=== PATIENT | female | born 1980 | race Caucasian/White ===

== ENCOUNTER → 2016-12-08 | Outpatient (CLI) | payer OTHER ==
[2016-12-08 12:07] LABS: CH 32.9; CHCM 33.5; HCT 37.6 % (34.0-46.0); HDW 2.27; HGB 12.5 gm/dL (11.4-16.0); MCH 32.7 pg (25.0-35.0); MCHC 33.1 g/dL (31.0-37.0); MCV 98.7 fL (80.0-100.0); Mean Platelet Volume 7.3; RBC 3.81 m/uL (3.80-5.40); RDW 12.5 % (11.5-15.5); WBC 8.5 k/uL (3.8-10.6)
--- NOTE | 2016-12-08 12:25 | WWHP ---
DATE OF SERVICE: 12/08/2016 CHIEF COMPLAINT: The patient is here for her routine gynecologic exam. HPI: This is a 36-year-old, G8, P7-0-1-7. Her LMP was in 2009 and this was just prior to her endometrial ablation. She has been amenorrheic since then. She states her last pelvic exam was about 5 years ago. She is without gynecologic complaints. She states she has been receiving medroxyprogesterone acetate injections every 3 months because of her history of ovarian cysts. She says she has been on this since before her endometrial ablation. She says she does this through Eliel Cassidy who was with Dr. Nash in [place]. PAST MEDICAL HISTORY: Chronic back pain, asthma as a child, history of depression. MEDICATIONS: 1. Ventolin inhaler p.r.n. 2. Gabapentin 300 mg daily. 3. Potassium 10 mEq daily. 4. Ibuprofen 600 mg p.r.n. 5. Medroxyprogesterone injections 150 mg every 3 months. 6. Tramadol 50 mg daily. 7. Ciprofloxacin 500 mg as directed. 8. Baclofen 10 mg as directed. ALLERGIES: No known drug allergies. PAST SURGICAL HISTORY: LEEP procedure of the cervix in approximately 2003, D&C for spontaneous in 1997, tubal ligation in 2003, endometrial ablation in 2009. PAST OB HISTORY: Seven vaginal deliveries and one spontaneous . 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 She states she had a LEEP procedure of her cervix in 2003 for cervical dysplasia and Pap smears have been normal since then. SOCIAL HISTORY: She admits to smoking 1-1/2 packs of cigarettes per day and has about 4 alcoholic drinks per year. She does admit to smoking marijuana, but denies any other drug use. She is but has been for many years and lives with her present boyfriend who she has been with since approximately 2000. 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 FAMILY HISTORY: Father had throat cancer. Paternal aunt had breast cancer. Grandmother had some type of female cancer but she is uncertain of the type. Grandfather had hypertension. REVIEW OF SYSTEMS: She believes she has gained about 20 pounds over the last year or so. She denies respiratory, cardiac, or GI problems. PHYSICAL EXAM: Blood pressure 106/70. Height 5 feet 4 inches. Weight 153 pounds. Temperature 97.7, pulse 80. This a well-developed, well-nourished white female who is alert and oriented x3 in no acute distress. HEENT is within normal limits. NECK: Supple without mass or thyromegaly. CHEST AND LUNGS: Clear to auscultation. HEART: Regular rate and rhythm. Breasts are without mass or discharge. Axillary exam is negative for adenopathy. BACK: Negative for CVA tenderness. ABDOMEN: Soft, nontender, without palpable masses. PELVIC EXAM: Normal external genitalia. Cervix and vagina appear normal. Cervix has an appearance that she has had a previous LEEP procedure in the past. There are no lesions. There is no unusual discharge. No evidence of prolapse. The uterus is midposition, nongravid size and nontender. There are no palpable adnexal masses or tenderness. Rectal exam is negative tenderness. EXTREMITIES: Nontender. IMPRESSION: A 36-year-old female with normal gynecologic exam who is status post tubal ligation. PLAN: 1. Pap smear was performed. 2. Self breast examination was discussed. 3. She had a mammogram in 04/2016 and was benign. I recommended that she have her next one at age 38. 4. She will return in one year.
[2016-12-08 12:38] LABS: ALT 24 U/L (9-52); AST 19 U/L (14-36); Alkaline Phosphatase 63 U/L (38-126); Anion Gap 9 mmol/L; Blood Urea Nitrogen 6 mg/dL (7-17); Calcium 9.1 mg/dL (8.4-10.2); Carbon Dioxide 24 mmol/L (22-30); Chloride 107 mmol/L (98-107); Cholesterol 214 mg/dL (<200); Glucose 87 mg/dL (74-99); HDL Cholesterol 52 mg/dL (40-60); Non-African American GFR(MDRD) >60 (>60 ml/min/1.73 sqM); Potassium 4.2 mmol/L (3.5-5.1); Sodium 140 mmol/L (137-145); Total Bilirubin 0.5 mg/dL (0.2-1.3); Total Protein 7.2 g/dL (6.3-8.2); Triglycerides 52 mg/dL (<150)
--- NOTE | 2016-12-22 05:50 | WWPLE ---
December 21, 2016 DOMINIC HORTON MD RE: Micaela Ashraf Dear Dr. Horton: I had the pleasure of seeing your patient Micaela Ashraf in the office on 12/08/16. As you know she is a 36-year-old female who presented for her routine gynecologic exam. Her gynecologic exam was unremarkable. Her Pap smear showed ASCUS. Reflex high risk HPV testing was performed and this was negative. Nothing further is needed at this time, however, I have recommended that we repeat the Pap smear in one year. Her mammogram will be due at age 38. Thank you for allowing me to participate in the care of your patient. Please do not hesitate to call if you have any questions. Sincerely, CARMEN CANDELARIA MD [facility]
== END | disposition home or self-care (01) ==
LOC: WWCWWP 09:58
PROVIDERS: ATTEND Obstetrics & Gynecology
DX: Z00.00 Encounter for general adult medical examination without abnormal findings (principal); E78.2 Mixed hyperlipidemia; M19.90 Unspecified osteoarthritis, unspecified site; J44.9 Chronic obstructive pulmonary disease, unspecified
CPT/HCPCS: 36415; 80053; 80061; 85027

== ENCOUNTER 2017-02-14 09:57 | Emergency (ER) | payer OTHER ==
[2017-02-14] MEDS ORDERED: ONDANSETRON 4 MG/2 ML VIAL IVP STA (10:44)
[2017-02-14] MEDS ORDERED: SODIUM CHLORIDE 0.9% 1,000 ML IV STA (10:44)
[2017-02-14] MEDS ORDERED: HYDROmorphone 1 MG/ML 1 ML SYRINGE IVP STA (10:44)
--- NOTE | 2017-02-14 10:47 | ED ---
General Adult HPI - General Chief complaint: Abdominal Pain Stated complaint: Rt side pain Time Seen by Provider: 02/14/17 10:40 Source: patient, RN notes reviewed Mode of arrival: ambulatory Limitations: no limitations - History of Present Illness Initial comments: Patient 37-year-old female who presents emergency room today with a chief complaint of right-sided abdominal pain that started last night. She describes it as pressure and sharp at times. She states she seems to be worse with movements. She states not noticed any association with food as it just started last night. Patient currently rates it a 6/10 on located on the right upper quadrant. Does admit some pain radiating around to the right side of her back. She admits that these symptoms are somewhat similar to ovarian cyst that she' s had in the past but also admits that it does feel different to her. Patient denies any other complaints or symptoms. Patient denies any recent fever, chills , shortness of breath, chest pain numbness or tingling, dysuria or hematuria, constipation or diarrhea, headaches or visual changes, or any other complaints. - Related Data Home Medications Medication Instructions Recorded Confirmed Albuterol Inhaler [Ventolin Hfa 2 puff INHALATION RT-Q4H PRN 02/14/17 02/14/17 Inhaler] Atorvastatin [Lipitor] 20 mg PO HS 02/14/17 02/14/17 Baclofen 10 mg PO BID PRN 02/14/17 02/14/17 Gabapentin [Neurontin] 300 mg PO BID 02/14/17 02/14/17 Ibuprofen [Motrin] 600 mg PO BID 02/14/17 02/14/17 Medroxyprogesterone Acetate 150 mg PO Q90D 02/14/17 02/14/17 [Medroxyprogesterone Acetate] Potassium Chloride [Klor-Con 10] 10 meq PO DAILY 02/14/17 02/14/17 traMADol HCl [Ultram] 50 mg PO BID PRN 02/14/17 02/14/17 Previous Rx's Medication Instructions Recorded Omeprazole 20 mg PO DAILY 10 Days 02/14/17 Ondansetron Odt [Zofran ODT] 4 mg PO Q8HR PRN #20 tab 02/14/17 Allergies Allergy/AdvReac Type Severity Reaction Status Date / Time No Known Allergies Allergy Verified 02/14/17 12:40 Review of Systems ROS Statement: Those systems with pertinent positive or pertinent negative responses have been documented in the HPI. ROS Other: All systems not noted in ROS Statement are negative. Past Medical History Past Medical History: No Reported History History of Any Multi-Drug Resistant Organisms: None Reported Past Surgical History: Tubal Ligation Additional Past Surgical History / Comment(s): uterine ablation d and c Past Psychological History: No Psychological Hx Reported Smoking Status: Current every day smoker Past Alcohol Use History: Rare Past Drug Use History: Marijuana General Exam - General Exam Comments Initial Comments: General: The patient is awake and alert, in no distress, and does not appear acutely ill. Eye: Pupils are equal, round and reactive to light, extra-ocular movements are intact. No nystagmus. There is normal conjunctiva bilaterally. No signs of icterus. Ears, nose, mouth and throat: There are moist mucous membranes and no oral lesions. Neck: The neck is supple, there is no tenderness or JVD. Cardiovascular: There is a regular rate and rhythm. No murmur, rub or gallop is appreciated. Respiratory: Lungs are clear to auscultation, respirations are non-labored, breath sounds are equal. No wheezes, stridor, rales, or rhonchi. Gastrointestinal: Normal. CMP. Normal bowel sounds. Abdomen soft on palpation. Patient does have tenderness in the right upper quadrant. No rebound tenderness. No guarding. No CVA tenderness. Musculoskeletal: Normal ROM, no tenderness. Strength 5/5. Sensation intact. Pulses equal bilaterally 2+. Neurological: A&O x 3. CN II-XII intact, There are no obvious motor or sensory deficits. Coordination appears grossly intact. Speech is normal. Skin: Skin is warm and dry and no rashes or lesions are noted. Psychiatric: Cooperative, appropriate mood & affect, normal judgment. Limitations: no limitations Course Vital Signs 02/14/17 02/14/17 10:27 12:18 Temperature 98.2 F Pulse Rate 80 59 L Respiratory 16 18 Rate Blood Pressure 135/89 120/58 O2 Sat by Pulse 97 907 H Oximetry Medical Decision Making - Medical Decision Making Patient reexamined at this time shows no signs of distress. Resting comfortably in the stretcher. Her abdomen soft nontender. Patient's labs been reviewed and are unremarkable. Ultrasound reviewed no evidence for acute cholecystitis. Was discussed with patient the results. Patient will be discharged home on omeprazole for her symptoms advised follow-up family doctor she has an appointment in 2 days. Advised to discuss options of further evaluation and possible HIDA scan. Advised return if symptoms increase worsen or for any other concerns. - Lab Data Result diagrams: 02/14/17 10:56 02/14/17 10:56 Lab Results 02/14/17 02/14/17 02/14/17 Range/Units 10:56 10:56 10:56 WBC 7.7 (3.8-10.6) k/uL RBC 3.90 (3.80-5.40) m/uL Hgb 12.6 (11.4-16.0) gm/dL Hct 38.1 (34.0-46.0) % MCV 97.5 (80.0-100.0) fL MCH 32.4 (25.0-35.0) pg MCHC 33.2 (31.0-37.0) g/dL RDW 12.3 (11.5-15.5) % Plt Count 341 (150-450) k/uL Neutrophils % 58 % Lymphocytes % 31 % Monocytes % 5 % Eosinophils % 2 % Basophils % 1 % Neutrophils # 4.4 (1.3-7.7) k/uL Lymphocytes # 2.3 (1.0-4.8) k/uL Monocytes # 0.4 (0-1.0) k/uL Eosinophils # 0.1 (0-0.7) k/uL Basophils # 0.1 (0-0.2) k/uL Sodium 140 (137-145) mmol/L Potassium 4.8 (3.5-5.1) mmol/L Chloride 107 (98-107) mmol/L Carbon Dioxide 20 L (22-30) mmol/L Anion Gap 13 mmol/L BUN 5 L (7-17) mg/dL Creatinine 0.72 (0.52-1.04) mg/dL Est GFR (MDRD) Af Amer >60 (>60 ml/min/1.73 sqM) Est GFR (MDRD) Non-Af >60 (>60 ml/min/1.73 sqM) Glucose 88 (74-99) mg/dL Calcium 9.5 (8.4-10.2) mg/dL Total Bilirubin 0.6 (0.2-1.3) mg/dL AST 32 (14-36) U/L ALT 33 (9-52) U/L Alkaline Phosphatase 73 (38-126) U/L Total Protein 8.1 (6.3-8.2) g/dL Albumin 4.3 (3.5-5.0) g/dL Amylase 51 (30-110) U/L Lipase 84 (23-300) U/L Urine Color Light Yellow Urine Appearance Clear (Clear) Urine pH 5.0 (5.0-8.0) Ur Specific Roberta 1.002 (1.001-1.035) Urine Protein Negative (Negative) Urine Glucose (UA) Negative (Negative) Urine Ketones Negative (Negative) Urine Blood Negative (Negative) Urine Nitrite Negative (Negative) Urine Bilirubin Negative (Negative) Urine Urobilinogen <2.0 (<2.0) mg/dL Ur Leukocyte Esterase Negative (Negative) Disposition Clinical Impression: Abdominal pain Disposition: HOME SELF-CARE Condition: Good Instructions: Abdominal Pain (ED) Additional Instructions: Please use medication as discussed. Please follow-up with family doctor in the next 2 days with scheduled appointment. Please discuss options of possible HIDA scan. Please return to emergency room if any symptoms increase or worsen or for any other concerns as discussed. Prescriptions: Omeprazole 20 mg PO DAILY 10 Days Ondansetron Odt [Zofran ODT] 4 mg PO Q8HR PRN #20 tab PRN Reason: Nausea Time of Disposition: 13:14
--- NOTE | 2017-02-14 11:37 | XR ---
EXAMINATION TYPE: XR KUB DATE OF EXAM: 02/14/2017 11:16 AM CLINICAL HISTORY: History of kidney stones with sharp right-sided pain and nausea. TECHNIQUE: 2 upright KUB images of the abdomen are obtained COMPARISON: CT abdomen and pelvis May 14, 2015 FINDINGS: Scattered gas is seen in non-distended small bowel loops. Gas and fecal material is seen in non-distended colon. Rounded densities in left pelvis favor phleboliths. There is 10 mm oval densi ty in the right pelvis suspicious for distal ureter calculus as is not clearly seen on prior CT. No p neumoperitoneum is present. Lung bases are clear. Osseous structures are intact. IMPRESSION: Possible 10 mm distal right ureter calculus versus new prominent phlebolith.
[2017-02-14 11:45] LABS: Appearance,Urine Clear (Clear); Bilirubin,Urine Negative (Negative); Glucose,Urine (UA) Negative (Negative); Ketones,Urine Negative (Negative); Leukocyte Esterase,Urine Negative (Negative); Nitrite,Urine Negative (Negative); Protein,Urine Negative (Negative); Specific Gravity,Urine 1.002 (1.001-1.035); UA Billing (MACRO vs. MICRO) CHEM; Urobilinogen,Urine <2.0 mg/dL (<2.0)
[2017-02-14 11:46] LABS: Basophils # (A) 0.1 k/uL (0-0.2); Basophils % (A) 1 %; CH 33.1; CHCM 34.1; Eosinophils # (A) 0.1 k/uL (0-0.7); Eosinophils % (A) 2 %; HCT 38.1 % (34.0-46.0); HDW 2.22; HGB 12.6 gm/dL (11.4-16.0); Luc # (Auto) 0.24; Luc % (Auto) 3; Lymphocytes # (A) 2.3 k/uL (1.0-4.8); Lymphocytes % (A) 31 %; MCH 32.4 pg (25.0-35.0); MCHC 33.2 g/dL (31.0-37.0); MCV 97.5 fL (80.0-100.0); Mean Platelet Volume 7.6; Monocytes # (A) 0.4 k/uL (0-1.0); Monocytes % (A) 5 %; Neutrophils # (A) 4.4 k/uL (1.3-7.7); Neutrophils % (A) 58 %; RDW 12.3 % (11.5-15.5); WBC 7.7 k/uL (3.8-10.6); WBC (Perox) 7.78
[2017-02-14 11:59] LABS: ALT 33 U/L (9-52); AST 32 U/L (14-36); Alkaline Phosphatase 73 U/L (38-126); Amylase 51 U/L (30-110); Anion Gap 13 mmol/L; Blood Urea Nitrogen 5 mg/dL (7-17); Calcium 9.5 mg/dL (8.4-10.2); Carbon Dioxide 20 mmol/L (22-30); Chloride 107 mmol/L (98-107); Glucose 88 mg/dL (74-99); Non-African American GFR(MDRD) >60 (>60 ml/min/1.73 sqM); Sodium 140 mmol/L (137-145); Total Bilirubin 0.6 mg/dL (0.2-1.3); Total Protein 8.1 g/dL (6.3-8.2)
[2017-02-14 12:00] LABS: Potassium 4.8 mmol/L (3.5-5.1)
[2017-02-14 12:19] VITALS: RESP 18
--- NOTE | 2017-02-14 12:26 | US ---
EXAMINATION TYPE: US abdomen limited DATE OF EXAM: 02/14/2017 12:07 PM COMPARISON: CT abdomen and pelvis May 14, 2015 CLINICAL HISTORY: Pain. Right upper quadrant pain per patient. 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 There is suboptimal vi sualization of entire pancreas and liver. IMPRESSION: No shadowing mobile gallstones or ultrasound evidence for acute cholecystitis.
[2017-02-14 13:35] VITALS: BP 130/69; PULSE 58; TEMP 98.1
== END 2017-02-14 13:33 | disposition home or self-care (01) ==
LOC: EC 09:57
DX: R10.11 Right upper quadrant pain (principal); F17.200 Nicotine dependence, unspecified, uncomplicated; Z98.51 Tubal ligation status; Z98.890 Other specified postprocedural states; Z79.1 Long term (current) use of non-steroidal anti-inflammatories (NSAID); Z79.899 Other long term (current) drug therapy
CPT/HCPCS: 96361 ×2; 96374 ×2; 96375 ×2; 99284 ×2; 36415; 80053; 82150; 83690; 85025; 81003; 74000; 76705; J2405; J1170

== ENCOUNTER → 2017-04-12 | Outpatient (CLI) | payer OTHER ==
[2017-04-12 10:58] LABS: Cholesterol 144 mg/dL (<200); HDL Cholesterol 46 mg/dL (40-60); Triglycerides 80 mg/dL (<150)
== END | disposition home or self-care (01) ==
LOC: LABWHC1 09:18
PROVIDERS: ATTEND Internal Medicine
DX: E78.2 Mixed hyperlipidemia (principal)
CPT/HCPCS: 36415; 80061

== ENCOUNTER → 2017-04-13 | Outpatient (CLI) | payer OTHER ==
--- NOTE | 2017-04-13 13:51 | XR ---
EXAMINATION TYPE: XR lumbosacral spine min 4V DATE OF EXAM: 04/13/2017 1:23 PM CLINICAL HISTORY: Low back pain and osteoarthritis per order. Back pain for 3 years and history of ba ck strain per patient. TECHNIQUE: Frontal, lateral, and oblique images of the lumbar spine are obtained. COMPARISON: Lumbar spine x-ray September 22, 2015. FINDINGS: There are 5 lumbar type vertebral bodies identified. The lumbar spine shows satisfactory alignment without evidence of acute fracture or dislocation. Vertebral body heights and disk space he ights are within normal limits. The oblique images appear within normal limits. The overlying soft tissue appears unremarkable. IMPRESSION: Unremarkable study, no significant change from prior.
== END | disposition home or self-care (01) ==
LOC: RADXRMAIN 13:13
PROVIDERS: ATTEND Internal Medicine
DX: M54.5 Low back pain (principal); M19.90 Unspecified osteoarthritis, unspecified site
CPT/HCPCS: 72110

== ENCOUNTER → 2018-08-22 | Outpatient (CLI) | payer OTHER ==
--- NOTE | 2018-08-23 07:42 | MM ---
Reason for exam: screening (asymptomatic). Last mammogram was performed 2 years and 4 months ago. History: Patient has history of other cancer at age 25. Family history of breast cancer in paternal aunt at age 51, breast cancer in maternal aunt, and breast cancer in maternal uncle. Physical Findings: A clinical breast exam by your physician is recommended on an annual basis and results should be correlated with mammographic findings. MG Screening Mammo w CAD Bilateral CC and MLO view(s) were taken. Prior study comparison: May 05, 2016, bilateral MG screening mammo w CAD. February 06, 2016, bilateral MG screening mammo w CAD. There are scattered fibroglandular densities. There is no discrete abnormality. No significant changes when compared with prior studies. ASSESSMENT: Negative, BI-RAD 1 RECOMMENDATION: Routine screening mammogram of both breasts in 1 year.
== END | disposition home or self-care (01) ==
LOC: RADMAMWWP 08:00
PROVIDERS: ATTEND Internal Medicine
DX: Z12.31 Encounter for screening mammogram for malignant neoplasm of breast (principal)
CPT/HCPCS: 77067

== ENCOUNTER → 2019-03-12 | Outpatient (CLI) | payer OTHER ==
[2019-03-12 13:34] LABS: HCT 40.3 % (34.0-46.0); HGB 13.6 gm/dL (11.4-16.0); MCH 33.1 pg (25.0-35.0); MCHC 33.7 g/dL (31.0-37.0); MCV 98.3 fL (80.0-100.0); Mean Platelet Volume 6.8; Platelet Count 447 k/uL (150-450); RDW 13.7 % (11.5-15.5); WBC 9.6 k/uL (3.8-10.6)
[2019-03-12 13:45] LABS: ALT 22 U/L (9-52); AST 18 U/L (14-36); Albumin 4.1 g/dL (3.5-5.0); Alkaline Phosphatase 78 U/L (38-126); Anion Gap 7 mmol/L; Blood Urea Nitrogen 4 mg/dL (7-17); Calcium 9.3 mg/dL (8.4-10.2); Carbon Dioxide 26 mmol/L (22-30); Chloride 104 mmol/L (98-107); Cholesterol 231 mg/dL (<200); Glucose 88 mg/dL (74-99); HDL Cholesterol 43 mg/dL (40-60); LDL Cholesterol,Calculated 169 mg/dL (0-99); Potassium 3.8 mmol/L (3.5-5.1); Sodium 137 mmol/L (137-145); Total Bilirubin 0.6 mg/dL (0.2-1.3); Total Protein 7.2 g/dL (6.3-8.2); Triglycerides 93 mg/dL (<150)
--- NOTE | 2019-03-12 16:20 | XR ---
EXAMINATION TYPE: XR chest 2V DATE OF EXAM: 03/12/2019 COMPARISON: 05/04/2016 HISTORY: 39-year-old female E78.2, J44.9, K21.0, M19.90 TECHNIQUE: PA and lateral views FINDINGS: The cardiomediastinal silhouette, aorta, and pulmonary vasculature are within normal limits. Lungs an d pleural spaces are clear. IMPRESSION: No acute cardiopulmonary process.
== END ==
LOC: RADXRMAIN 12:07
PROVIDERS: ATTEND Internal Medicine
DX: J44.9 Chronic obstructive pulmonary disease, unspecified (principal); E78.2 Mixed hyperlipidemia; K21.0 Gastro-esophageal reflux disease with esophagitis; M19.90 Unspecified osteoarthritis, unspecified site; Z00.00 Encounter for general adult medical examination without abnormal findings
CPT/HCPCS: 71046; 80053; 80061; 84439; 84443; 85027

== ENCOUNTER 2019-04-07 23:04 | Emergency (ER) | payer OTHER ==
[2019-04-08 00:19] LABS: Basophils # (A) 0.1 k/uL (0-0.2); Basophils % (A) 1 %; Eosinophils # (A) 0.2 k/uL (0-0.7); Eosinophils % (A) 2 %; HCT 44.2 % (34.0-46.0); HGB 14.4 gm/dL (11.4-16.0); Lymphocytes # (A) 3.1 k/uL (1.0-4.8); Lymphocytes % (A) 27 %; MCH 31.7 pg (25.0-35.0); MCHC 32.6 g/dL (31.0-37.0); MCV 97.2 fL (80.0-100.0); Mean Platelet Volume 6.2; Monocytes # (A) 0.6 k/uL (0-1.0); Monocytes % (A) 5 %; Neutrophils # (A) 7.3 k/uL (1.3-7.7); Neutrophils % (A) 64 %; Platelet Count 504 k/uL (150-450); RBC 4.55 m/uL (3.80-5.40); RDW 13.1 % (11.5-15.5); WBC 11.4 k/uL (3.8-10.6)
[2019-04-08 00:28] LABS: INR 0.9 (<1.2); Partial Thromboplastin Time 25.5 sec (22.0-30.0); Prothrombin Time 9.4 sec (9.0-12.0)
[2019-04-08 00:34] LABS: ALT 25 U/L (9-52); AST 26 U/L (14-36); Albumin 4.6 g/dL (3.5-5.0); Alkaline Phosphatase 97 U/L (38-126); Amylase 49 U/L (30-110); Anion Gap 10 mmol/L; Blood Urea Nitrogen 6 mg/dL (7-17); Calcium 10.3 mg/dL (8.4-10.2); Carbon Dioxide 26 mmol/L (22-30); Chloride 103 mmol/L (98-107); Glucose 93 mg/dL (74-99); Lipase 60 U/L (23-300); Magnesium 1.9 mg/dL (1.6-2.3); Sodium 139 mmol/L (137-145); Total Bilirubin 0.5 mg/dL (0.2-1.3); Total Protein 8.2 g/dL (6.3-8.2)
--- NOTE | 2019-04-08 00:35 | XR ---
EXAM: XR Chest, 2 Views CLINICAL HISTORY: ITS.REASON XR Reason: Chest Pain TECHNIQUE: Frontal and lateral views of the chest. COMPARISON: No relevant prior studies available. FINDINGS: Lungs: Unremarkable. No consolidation. Pleural space: Unremarkable. No pneumothorax. Heart: No suspicious enlargement. Mediastinum: Unremarkable. Bones/joints: No acute fracture. IMPRESSION: No acute findings.
[2019-04-08] MEDS ORDERED: IPRATROPIUM-ALBUTEROL 3 ML NEB INHALATION STA (01:22)
[2019-04-08] MEDS ORDERED: predniSONE 20 MG TAB PO STA (01:23)
--- NOTE | 2019-04-08 03:39 | ED ---
General Adult HPI - General Chief complaint: Chest Pain Stated complaint: Abd and chest pain Time Seen by Provider: 04/08/19 00:28 Source: patient Mode of arrival: ambulatory Limitations: no limitations - History of Present Illness Initial comments: The patient is a 39-year-old female who presents to the emergency room with complaint of chest and abdominal pain. The patient admits that she has had a cough for the past week. She states she has had yellow sputum production. She denies any sick contacts or recent travel. No hemoptysis. Admits to mild shortness of breath. Admits to chest pain with coughing. The pain is also exacerbated by movement of her bilateral upper extremities. She denies any associated nausea, vomiting or diaphoresis. No history of cardiac disease. No family history of cardiac disease or sudden cardiac . No previous history of underlying lung issues to include asthma or COPD. The patient does smoke a pack and a half day. Denies ripping or tearing sensation to her back. No pleuritic chest pain. No history of DVTs or PEs. No unilateral calf pain or swelling. No exogenous hormone use, prolonged immobility or recent travel. Denies any fevers or chills. The patient reports abdominal pain with coughing. Denies any pain with palpation. No urinary symptoms to include dysuria, hematuria or difficulty voiding. Denies any changes in her bowel movements to include constipation or dark tarry stools. No abnormal vaginal bleeding or discharge. She has had an ablation. Does admit to one episode of loose watery stool. There are no other alleviating, precipitating or modifying factors. - Related Data Home Medications Medication Instructions Recorded Confirmed Albuterol Inhaler [Ventolin Hfa 2 puff INHALATION RT-Q4H PRN 02/14/17 02/14/17 Inhaler] Atorvastatin [Lipitor] 20 mg PO HS 02/14/17 02/14/17 Baclofen 10 mg PO BID PRN 02/14/17 02/14/17 Gabapentin [Neurontin] 300 mg PO BID 02/14/17 02/14/17 Ibuprofen [Motrin] 600 mg PO BID 02/14/17 02/14/17 Medroxyprogesterone Acetate 150 mg PO Q90D 02/14/17 02/14/17 Potassium Chloride [Klor-Con 10] 10 meq PO DAILY 03/20/17 03/20/17 traMADol HCl [Ultram] 50 mg PO BID PRN 02/14/17 02/14/17 Previous Rx's Medication Instructions Recorded Omeprazole 20 mg PO DAILY 10 Days cap 02/14/17 Ondansetron Odt [Zofran ODT] 4 mg PO Q8HR PRN #20 tab 02/14/17 Albuterol Sulfate [Proair Hfa] 1 - 2 puff INHALATION Q4HR PRN #1 04/08/19 inhaler Azithromycin [Zithromax Z-pack] 250 mg PO DIRECTED #1 pack 04/08/19 predniSONE 20 mg PO BID 5 Days #10 tab 04/08/19 Allergies Allergy/AdvReac Type Severity Reaction Status Date / Time No Known Allergies Allergy Verified 02/14/17 12:40 Review of Systems ROS Statement: Those systems with pertinent positive or pertinent negative responses have been documented in the HPI. ROS Other: All systems not noted in ROS Statement are negative. Past Medical History Past Medical History: No Reported History History of Any Multi-Drug Resistant Organisms: None Reported Past Surgical History: Tubal Ligation Additional Past Surgical History / Comment(s): uterine ablation d and c Past Psychological History: No Psychological Hx Reported Smoking Status: Current every day smoker Past Alcohol Use History: Rare Past Drug Use History: Marijuana General Exam Limitations: no limitations General appearance: alert, in no apparent distress Head exam: Present: atraumatic, normocephalic, normal inspection Eye exam: Present: normal appearance, PERRL, EOMI. Absent: scleral icterus, conjunctival injection, periorbital swelling ENT exam: Present: normal exam, mucous membranes moist Neck exam: Present: normal inspection. Absent: tenderness, meningismus, lymphadenopathy Respiratory exam: Present: normal lung sounds bilaterally, chest wall tenderness. Absent: respiratory distress, wheezes, rales, rhonchi, stridor Cardiovascular Exam: Present: regular rate, normal rhythm, normal heart sounds. Absent: systolic murmur, diastolic murmur, rubs, gallop, clicks GI/Abdominal exam: Present: soft, normal bowel sounds. Absent: distended, tenderness, guarding, rebound, rigid Extremities exam: Present: normal inspection, full ROM, normal capillary refill. Absent: tenderness, pedal edema, joint swelling, calf tenderness Back exam: Present: normal inspection Neurological exam: Present: alert, oriented X3, CN II-XII intact Psychiatric exam: Present: normal affect, normal mood Skin exam: Present: warm, dry, intact, normal color. Absent: rash Course Vital Signs 04/07/19 04/08/19 04/08/19 23:38 01:39 01:42 Temperature 98.6 F Pulse Rate 88 65 70 Respiratory 20 16 12 Rate Blood Pressure 144/86 140/81 O2 Sat by Pulse 98 96 Oximetry 04/08/19 01:50 Temperature Pulse Rate 78 Respiratory 12 Rate Blood Pressure O2 Sat by Pulse Oximetry EKG Findings - EKG Comments: EKG Findings:: EKG demonstrates normal sinus rhythm with a ventricular rate of 80. ME interval 136. QRS [address] acute [address] segment elevations or depressions concerning for ischemic changes. Medical Decision Making - Medical Decision Making The patient was placed into room 28. She is hooked up to continuous pulse ox and cardiac monitoring. A 12-lead EKG was performed. I did discuss diagnosis, differential and treatment options. Laboratory studies were conducted. The patient was sent for chest x-ray. She is given a DuoNeb breathing treatment and 60 mg of prednisone. Upon return of the results, I did discuss them with the patient. The patient presents with a cough, productive sputum and atypical chest pain. She does have 2 negative troponins in the ER. The patient's heart score is calculated and she is low risk for cardiac event. At this time the patient will be discharged home and given a prescription for prednisone, albuterol inhaler and Zithromax. She needs to follow-up with her primary care physician in 2-4 days for reevaluation. Should she have any new or worsening symptoms, she should return to the emergency room. I did recommend a full cardiac workup to include an echo, Holter monitoring and possible stress test. The patient states she has had this done approximately 6 years ago, does agree and will follow-up. She was discharged home in stable condition. - Differential Diagnosis Acute cough, acute bronchospasm, atypical chest pain - Lab Data Result diagrams: 04/07/19 23:59 04/07/19 23:59 Lab Results 04/07/19 04/07/19 04/07/19 Range/Units 23:59 23:59 23:59 WBC 11.4 H (3.8-10.6) k/uL RBC 4.55 (3.80-5.40) m/uL Hgb 14.4 (11.4-16.0) gm/dL Hct 44.2 (34.0-46.0) % MCV 97.2 (80.0-100.0) fL MCH 31.7 (25.0-35.0) pg MCHC 32.6 (31.0-37.0) g/dL RDW 13.1 (11.5-15.5) % Plt Count 504 H (150-450) k/uL Neutrophils % 64 % Lymphocytes % 27 % Monocytes % 5 % Eosinophils % 2 % Basophils % 1 % Neutrophils # 7.3 (1.3-7.7) k/uL Lymphocytes # 3.1 (1.0-4.8) k/uL Monocytes # 0.6 (0-1.0) k/uL Eosinophils # 0.2 (0-0.7) k/uL Basophils # 0.1 (0-0.2) k/uL PT 9.4 (9.0-12.0) sec INR 0.9 (<1.2) APTT 25.5 (22.0-30.0) sec Sodium 139 (137-145) mmol/L Potassium 4.0 (3.5-5.1) mmol/L Chloride 103 (98-107) mmol/L Carbon Dioxide 26 (22-30) mmol/L Anion Gap 10 mmol/L BUN 6 L (7-17) mg/dL Creatinine 0.67 (0.52-1.04) mg/dL Est GFR (CKD-EPI)AfAm >90 (>60 ml/min/1.73 sqM) Est GFR (CKD-EPI)NonAf >90 (>60 ml/min/1.73 sqM) Glucose 93 (74-99) mg/dL Calcium 10.3 H (8.4-10.2) mg/dL Magnesium 1.9 (1.6-2.3) mg/dL Total Bilirubin 0.5 (0.2-1.3) mg/dL AST 26 (14-36) U/L ALT 25 (9-52) U/L Alkaline Phosphatase 97 (38-126) U/L Troponin I (0.000-0.034) ng/mL Total Protein 8.2 (6.3-8.2) g/dL Albumin 4.6 (3.5-5.0) g/dL Amylase 49 (30-110) U/L Lipase 60 (23-300) U/L 04/07/19 04/08/19 Range/Units 23:59 02:28 WBC (3.8-10.6) k/uL RBC (3.80-5.40) m/uL Hgb (11.4-16.0) gm/dL Hct (34.0-46.0) % MCV (80.0-100.0) fL MCH (25.0-35.0) pg MCHC (31.0-37.0) g/dL RDW (11.5-15.5) % Plt Count (150-450) k/uL Neutrophils % % Lymphocytes % % Monocytes % % Eosinophils % % Basophils % % Neutrophils # (1.3-7.7) k/uL Lymphocytes # (1.0-4.8) k/uL Monocytes # (0-1.0) k/uL Eosinophils # (0-0.7) k/uL Basophils # (0-0.2) k/uL PT (9.0-12.0) sec INR (<1.2) APTT (22.0-30.0) sec Sodium (137-145) mmol/L Potassium (3.5-5.1) mmol/L Chloride (98-107) mmol/L Carbon Dioxide (22-30) mmol/L Anion Gap mmol/L BUN (7-17) mg/dL Creatinine (0.52-1.04) mg/dL Est GFR (CKD-EPI)AfAm (>60 ml/min/1.73 sqM) Est GFR (CKD-EPI)NonAf (>60 ml/min/1.73 sqM) Glucose (74-99) mg/dL Calcium (8.4-10.2) mg/dL Magnesium (1.6-2.3) mg/dL Total Bilirubin (0.2-1.3) mg/dL AST (14-36) U/L ALT (9-52) U/L Alkaline Phosphatase (38-126) U/L Troponin I <0.012 <0.012 (0.000-0.034) ng/mL Total Protein (6.3-8.2) g/dL Albumin (3.5-5.0) g/dL Amylase (30-110) U/L Lipase (23-300) U/L - EKG Data -: EKG Interpreted by Me EKG shows normal: sinus rhythm - Radiology Data Radiology results: report reviewed Disposition Clinical Impression: Cough, Bronchospasm, acute, Atypical chest pain Disposition: HOME SELF-CARE Condition: Stable Instructions (If sedation given, give patient instructions): Acute Cough (ED) Additional Instructions: Please follow-up with your primary care doctor in 2-4 days. They should do a full cardiac workup on you to include an echo and a Holter monitor. You may need a stress test. Return to the emergency department should you have any new or worsening symptoms. Prescriptions: predniSONE 20 mg PO BID 5 Days #10 tab Albuterol Sulfate [Proair Hfa] 1 - 2 puff INHALATION Q4HR PRN #1 inhaler PRN Reason: difficulty in breathing Azithromycin [Zithromax Z-pack] 250 mg PO DIRECTED #1 pack Is patient prescribed a controlled substance at d/c from ED?: No Referrals: Petar Sterling MD [Primary Care Provider] - 1-2 days Time of Disposition: 03:38
[2019-04-08 04:28] VITALS: BP 123/83; PULSE 87; RESP 19; TEMP 97.2
== END 2019-04-08 04:21 | disposition home or self-care (01) ==
LOC: EC 23:04
DX: J98.01 Acute bronchospasm (principal); R10.9 Unspecified abdominal pain; F17.210 Nicotine dependence, cigarettes, uncomplicated; Z79.1 Long term (current) use of non-steroidal anti-inflammatories (NSAID); Z79.890 Hormone replacement therapy; Z79.899 Other long term (current) drug therapy
CPT/HCPCS: 36415 ×2; 94640; 93005; 80053; 82150; 83690; 83735; 84484 ×2; 85025; 85610; 85730; 71046; 99285; J7512

== ENCOUNTER 2020-01-30 19:49 | Emergency (ER) | payer OTHER ==
[2020-01-30 20:00] VITALS: RESP 18; TEMP 97.6
[2020-01-30] MEDS ORDERED: SODIUM CHLORIDE 0.9% 1,000 ML IV STA (20:28)
[2020-01-30 21:04] LABS: ALT 9 U/L (4-34); AST 22 U/L (14-36); African American GFR (CKD) >90 (>60 ml/min/1.73 sqM); Albumin 3.3 g/dL (3.5-5.0); Alkaline Phosphatase 57 U/L (38-126); Anion Gap 6 mmol/L; Blood Urea Nitrogen 6 mg/dL (7-17); Calcium 8.5 mg/dL (8.4-10.2); Carbon Dioxide 25 mmol/L (22-30); Chloride 107 mmol/L (98-107); Glucose 84 mg/dL (74-99); Non-African American GFR(CKD) >90 (>60 ml/min/1.73 sqM); Potassium 3.4 mmol/L (3.5-5.1); Sodium 138 mmol/L (137-145); Total Bilirubin 0.3 mg/dL (0.2-1.3); Total Protein 5.9 g/dL (6.3-8.2)
[2020-01-30 21:08] LABS: Appearance,Urine Cloudy (Clear); Bilirubin,Urine Negative (Negative); Blood,Urine Large (Negative); Color,Urine Light Red; Glucose,Urine (UA) Negative (Negative); Ketones,Urine Negative (Negative); Leukocyte Esterase,Urine Small (Negative); Mucus,Urine Few /hpf; Nitrite,Urine Negative (Negative); PH, Urine 5.5 (5.0-8.0); Protein,Urine 1+ (Negative); RBC,Urine >182 /hpf (0-5); Squamous Epithelial Cell,Urine 4 /hpf (0-4); WBC,Urine 4 /hpf (0-5)
[2020-01-30 21:14] LABS: Basophils % (A) 0 %; Eosinophils # (A) 0.2 k/uL (0-0.7); Eosinophils % (A) 1 %; HCT 41.8 % (34.0-46.0); HGB 13.6 gm/dL (11.4-16.0); Lymphocytes # (A) 3.2 k/uL (1.0-4.8); Lymphocytes % (A) 29 %; MCH 32.4 pg (25.0-35.0); MCHC 32.6 g/dL (31.0-37.0); MCV 99.1 fL (80.0-100.0); Mean Platelet Volume 6.9; Monocytes # (A) 0.5 k/uL (0-1.0); Monocytes % (A) 4 %; Neutrophils # (A) 6.9 k/uL (1.3-7.7); Neutrophils % (A) 63 %; Platelet Count 405 k/uL (150-450); RBC 4.22 m/uL (3.80-5.40); RDW 13.4 % (11.5-15.5); WBC 10.9 k/uL (3.8-10.6)
--- NOTE | 2020-01-30 21:27 | ED ---
General Adult HPI - General Chief complaint: Abdominal Pain Stated complaint: Abd Pain Time Seen by Provider: 01/30/20 20:06 Source: patient, RN notes reviewed, old records reviewed Mode of arrival: ambulatory Limitations: no limitations - History of Present Illness Initial comments: 40-year-old female patient with past, history of uterine ablation, tubal ligation parents ED for chief complaint of lower abdominal cramping, vaginal bleeding. Patient reports that the bleeding began earlier today. Reports that she previously had not bled since the uterine ablation which is approximately 10 years ago. Denies any other complaints. Systemic: Pt denies fatigue, fever/chills, rash. Pt denies weakness, night sweats, weight loss. Neuro: Pt denies headache, visual disturbances, syncope or pre-syncope. HEENT: Pt denies ocular discharge or irritation, otalgia, rhinorrhea, pharyngitis or notable lymphadenopathy. Cardiopulmonary: Pt denies chest pain, SOB, heart palpitations, dyspnea on exertion. Abdominal/GI: Pt denies abdominal pain, n/v/d. : Pt denies dysuria, burning w/ urination, frequency/urgency. Denies new onset urinary or bowel incontinence. MSK: Pt denies myalgia, loss of strength or function in extremities. Neuro: Pt denies new onset weakness, paresthesias. - Related Data Home Medications Medication Instructions Recorded Confirmed Albuterol Inhaler [Ventolin Hfa 2 puff INHALATION RT-Q4H PRN 02/14/17 02/14/17 Inhaler] Atorvastatin [Lipitor] 20 mg PO HS 02/14/17 02/14/17 Baclofen 10 mg PO BID PRN 02/14/17 02/14/17 Gabapentin [Neurontin] 300 mg PO BID 02/14/17 02/14/17 Ibuprofen [Motrin] 600 mg PO BID 02/14/17 02/14/17 Medroxyprogesterone Acetate 150 mg PO Q90D 02/14/17 02/14/17 Potassium Chloride [Klor-Con 10] 10 meq PO DAILY 02/14/17 02/14/17 traMADol HCl [Ultram] 50 mg PO BID PRN 02/14/17 02/14/17 Previous Rx's Medication Instructions Recorded Omeprazole 20 mg PO DAILY 10 Days cap 02/14/17 Ondansetron Odt [Zofran ODT] 4 mg PO Q8HR PRN #20 tab 02/14/17 Albuterol Sulfate [Proair Hfa] 1 - 2 puff INHALATION Q4HR PRN #1 04/08/19 inhaler Azithromycin [Zithromax Z-pack] 250 mg PO DIRECTED #1 pack 04/08/19 predniSONE [Deltasone] 20 mg PO BID 5 Days #10 tab 04/08/19 Allergies Allergy/AdvReac Type Severity Reaction Status Date / Time No Known Allergies Allergy Verified 01/30/20 20:00 Review of Systems ROS Statement: Those systems with pertinent positive or pertinent negative responses have been documented in the HPI. ROS Other: All systems not noted in ROS Statement are negative. Past Medical History Past Medical History: No Reported History History of Any Multi-Drug Resistant Organisms: None Reported Past Surgical History: Tubal Ligation, Uterine Ablation Additional Past Surgical History / Comment(s): uterine ablation d and c Past Psychological History: No Psychological Hx Reported Smoking Status: Current every day smoker Past Alcohol Use History: Rare Past Drug Use History: Marijuana General Exam - General Exam Comments Initial Comments: Constitutional: NAD, AOX3, Pt has pleasant affect. HEENT: NC/AT, trachea midline, neck supple, no lymphadenopathy. Posterior pharynx non erythematous, without exudates. External ears appear normal, without discharge. Mucous membranes moist. Eyes PERRLA, EOM intact. There is no scleral icterus. No pallor noted. Cardiopulmonary: RRR, no murmurs, rubs or gallops, no JVD noted. Lungs CTAB in anterior and posterior [place]. No peripheral edema. Abdominal exam: Abdomen soft and non-distended. Abdomen non-tender to palpation in all 4 quadrants. Bowel sounds active in LLQ. No hepatosplenomegaly. No ecchymosis Neuro: CN II-XII grossly intact. No nuchal rigidity. No raccon eyes, no magdaleno sign, no hemotympanum. No cervical spinal tenderness. MSK: No posterior calf tenderness bilaterally, homans sign negative bilaterally. Posterior tibialis and radial pulse +2 bilaterally. Sensation intact in upper and lower extremities. Full active ROM in upper and lower extremities, 5/5 stregnth. Pelvic: Mild amount of blood noted posterior vaginal vault, small amount of blood urging from cervix. No lesions no ulcerations. No purulent drainage. Mucosa pink. Limitations: no limitations Course Vital Signs 01/30/20 19:57 Temperature 97.6 F Pulse Rate 83 Respiratory 18 Rate Blood Pressure 127/78 O2 Sat by Pulse 99 Oximetry Medical Decision Making - Medical Decision Making 40-year-old female patient with past, history of uterine ablation, tubal ligation parents ED for chief complaint of lower abdominal cramping, vaginal bleeding. Patient reports that the bleeding began earlier today. Reports that she previously had not bled since the uterine ablation which is approximately 10 years ago. Denies any other complaints. Patient both on the stable, afebrile. Physical exam displayed nontender abdomen, pelvic exam was offered and patient consented chaperoned by OVI Watts. This did display mild amount of blood draining from the cervix. No ulcerations no lesions no other pathology identified. Laboratory investigations are significant for very mild leukocytosis, UA did display large blood hCG is negative. Transvaginal ultrasound displayed 3 x 2 cm right ovarian cyst. No evidence of torsion. No solid pelvic mass. Endometrial stripe was not able to visualize. Patient discharged will follow up with OB chest UA and who performed ablation, which returned ER physician worsens. Case discussed with Dr. [place]. - Lab Data Result diagrams: 01/30/20 20:40 01/30/20 20:40 Lab Results 01/30/20 01/30/20 01/30/20 Range/Units 20:40 20:40 20:40 WBC 10.9 H (3.8-10.6) k/uL RBC 4.22 (3.80-5.40) m/uL Hgb 13.6 (11.4-16.0) gm/dL Hct 41.8 (34.0-46.0) % MCV 99.1 (80.0-100.0) fL MCH 32.4 (25.0-35.0) pg MCHC 32.6 (31.0-37.0) g/dL RDW 13.4 (11.5-15.5) % Plt Count 405 (150-450) k/uL Neutrophils % 63 % Lymphocytes % 29 % Monocytes % 4 % Eosinophils % 1 % Basophils % 0 % Neutrophils # 6.9 (1.3-7.7) k/uL Lymphocytes # 3.2 (1.0-4.8) k/uL Monocytes # 0.5 (0-1.0) k/uL Eosinophils # 0.2 (0-0.7) k/uL Basophils # 0.0 (0-0.2) k/uL Sodium 138 (137-145) mmol/L Potassium 3.4 L (3.5-5.1) mmol/L Chloride 107 (98-107) mmol/L Carbon Dioxide 25 (22-30) mmol/L Anion Gap 6 mmol/L BUN 6 L (7-17) mg/dL Creatinine 0.77 (0.52-1.04) mg/dL Est GFR (CKD-EPI)AfAm >90 (>60 ml/min/1.73 sqM) Est GFR (CKD-EPI)NonAf >90 (>60 ml/min/1.73 sqM) Glucose 84 (74-99) mg/dL Calcium 8.5 (8.4-10.2) mg/dL Total Bilirubin 0.3 (0.2-1.3) mg/dL AST 22 (14-36) U/L ALT 9 (4-34) U/L Alkaline Phosphatase 57 (38-126) U/L Total Protein 5.9 L (6.3-8.2) g/dL Albumin 3.3 L (3.5-5.0) g/dL Lipase 58 (23-300) U/L Urine Color Light Red Urine Appearance Cloudy H (Clear) Urine pH 5.5 (5.0-8.0) Ur Specific [place] 1.020 (1.001-1.035) Urine Protein 1+ H (Negative) Urine Glucose (UA) Negative (Negative) Urine Ketones Negative (Negative) Urine Blood Large H (Negative) Urine Nitrite Negative (Negative) Urine Bilirubin Negative (Negative) Urine Urobilinogen 2.0 (<2.0) mg/dL Ur Leukocyte Esterase Small H (Negative) Urine RBC >182 H (0-5) /hpf Urine WBC 4 (0-5) /hpf Ur Squamous Epith Cells 4 (0-4) /hpf Urine Mucus Few H (None) /hpf Urine HCG, Qual (Not Detectd) 01/30/20 Range/Units 20:40 WBC (3.8-10.6) k/uL RBC (3.80-5.40) m/uL Hgb (11.4-16.0) gm/dL Hct (34.0-46.0) % MCV (80.0-100.0) fL MCH (25.0-35.0) pg MCHC (31.0-37.0) g/dL RDW (11.5-15.5) % Plt Count (150-450) k/uL Neutrophils % % Lymphocytes % % Monocytes % % Eosinophils % % Basophils % % Neutrophils # (1.3-7.7) k/uL Lymphocytes # (1.0-4.8) k/uL Monocytes # (0-1.0) k/uL Eosinophils # (0-0.7) k/uL Basophils # (0-0.2) k/uL Sodium (137-145) mmol/L Potassium (3.5-5.1) mmol/L Chloride (98-107) mmol/L Carbon Dioxide (22-30) mmol/L Anion Gap mmol/L BUN (7-17) mg/dL Creatinine (0.52-1.04) mg/dL Est GFR (CKD-EPI)AfAm (>60 ml/min/1.73 sqM) Est GFR (CKD-EPI)NonAf (>60 ml/min/1.73 sqM) Glucose (74-99) mg/dL Calcium (8.4-10.2) mg/dL Total Bilirubin (0.2-1.3) mg/dL AST (14-36) U/L ALT (4-34) U/L Alkaline Phosphatase (38-126) U/L Total Protein (6.3-8.2) g/dL Albumin (3.5-5.0) g/dL Lipase (23-300) U/L Urine Color Urine Appearance (Clear) Urine pH (5.0-8.0) Ur Specific [place] (1.001-1.035) Urine Protein (Negative) Urine Glucose (UA) (Negative) Urine Ketones (Negative) Urine Blood (Negative) Urine Nitrite (Negative) Urine Bilirubin (Negative) Urine Urobilinogen (<2.0) mg/dL Ur Leukocyte Esterase (Negative) Urine RBC (0-5) /hpf Urine WBC (0-5) /hpf Ur Squamous Epith Cells (0-4) /hpf Urine Mucus (None) /hpf Urine HCG, Qual Not Detected (Not Detectd) Disposition Clinical Impression: Vaginal bleeding Disposition: HOME SELF-CARE Condition: Stable Instructions (If sedation given, give patient instructions): Dysfunctional Uterine Bleeding (ED) Additional Instructions: Follow-up with previously established laundry operator Dr. Engle tomorrow as well as PCP. Recommend having ultrasound repeated on an outpatient basis. Is patient prescribed a controlled substance at d/c from ED?: No Referrals: None,Stated [Primary Care Provider] - 1-2 days
--- NOTE | 2020-01-30 21:46 | US ---
EXAMINATION TYPE: US transvaginal DATE OF EXAM: 01/30/2020 COMPARISON: CT, US CLINICAL HISTORY: vaginal bleeding s/p ablation. Vaginal bleeding x 1 day. Hx tubal ligation, ablatio n, D and C. TECHNIQUE: Transvaginal (TV). Date of LMP: Unknown EXAM MEASUREMENTS: Uterus: 6.3 x 5.1 x 4.4 cm Endometrial Stripe: Not well seen due to shadowing. Right Ovary: 4.6 x 3.1 x 3.3 cm Area measured in CDS/ Left adnexa. Appears to be Left Ovary: 2.1 x 1.7 x 1.3 cm 1. Uterus: Anteverted Heterogeneous. 2. Endometrium: Not well seen. 3. Right Ovary: Measures enlarged. Complex area seen measurin.1 x 2.1 x 3.0 cm. 4. Left Ovary: Area measured that appears to be left ovary. Anechoic area seen measurin.4 x 1.3 x 1.1 cm. Spectral, color and waveform doppler imaging shows good arterial flow within the ovaries. Venous fl ow is limited in visibility bilaterally. Clear venous waveform not demonstrated. 5. Bilateral Adnexa: Appear to be wnl. 6. Posterior cul-de-sac: Left ovary in area? vs complex fluid collection. IMPRESSION: 3 cm x 2 cm right ovarian cyst. No evidence of ovarian torsion. No solid pelvic mass.
[2020-01-30 23:12] VITALS: BP 116/65; PULSE 69
[2020-02-01 11:17] LABS: Chlamydia trachomatis rRNA Not detected (Not detected); Neisseria gonorrhoeae rRNA Not detected (Not detected)
== END 2020-01-30 23:08 | disposition home or self-care (01) ==
LOC: EC 19:49
DX: N83.201 Unspecified ovarian cyst, right side (principal); N93.9 Abnormal uterine and vaginal bleeding, unspecified; F17.200 Nicotine dependence, unspecified, uncomplicated; Z79.1 Long term (current) use of non-steroidal anti-inflammatories (NSAID); Z79.3 Long term (current) use of hormonal contraceptives; Z79.899 Other long term (current) drug therapy; Z98.51 Tubal ligation status; Z98.890 Other specified postprocedural states
CPT/HCPCS: 36415; 76830; 80053; 81001; 81025; 83690; 85025; 87070; 87491; 87591; 87808; 93975; 96360; 99284

== ENCOUNTER 2020-07-23 20:27 | Emergency (ER) | payer OTHER ==
[2020-07-23] MEDS ORDERED: ACETAMINOPHEN TAB 500 MG TAB PO STA (20:40)
[2020-07-23] MEDS ORDERED: MORPHINE SULFATE 4 MG/ML SYRINGE IV STA (20:47)
[2020-07-23] MEDS ORDERED: SODIUM CHLORIDE 0.9% 1,000 ML IV STA ×2 (20:47→23:00)
--- NOTE | 2020-07-23 20:51 | ED ---
General Adult HPI - General Source: patient Mode of arrival: wheelchair <Aaron Blood Callie - Last Filed: 07/23/20 22:56> <Jitendra Cast - Last Filed: 07/24/20 00:33> - General Chief complaint: Fever Stated complaint: Back Pain, Chills Time Seen by Provider: 07/23/20 20:38 - History of Present Illness Initial comments: Dictation was produced using [employer] dictation software. please excuse any grammatical, word or spelling errors. This patient was cared for during a federal and state declared state of emergency secondary to Covid 19 Chief Complaint: 40-year-old female presents with left-sided flank pain. History of Present Illness: 40-year-old female presents with left-sided flank pain. Patient states that her symptoms have been ongoing for the last 4-5 hours. She states the pain is severe and colicky. It's located the left flank and radius down to her left groin. Patient has any history of kidney stones. She felt better about an hour ago. She is able to take a nap however she was woken up by her daughter and her pain all of a sudden came back. Patient does complain of low-grade temperature. Denies any nausea vomiting. No abdominal pain. No cough The ROS documented in this emergency department record has been reviewed and confirmed by me. Those systems with pertinent positive or negative responses have been documented in the HPI. All other systems are other negative and/or noncontributory. PHYSICAL EXAM: General Impression: Alert and oriented x3, acute distress secondary to pain HEENT: Normocephalic atraumatic, extra-ocular movements intact, pupils equal and reactive to light bilaterally, mucous membranes moist. Cardiovascular: Heart regular rate and rhythm Chest: Able to complete full sentences, no retractions, no tachypnea Abdomen: abdomen soft, non-tender, non-distended, no organomegaly Musculoskeletal: Pulses present and equal in all extremities, no peripheral edema, pain with left CVA thump Motor: no focal deficits noted Neurological: CN II-XII grossly intact, no focal motor or sensory deficits noted Skin: Intact with no visualized rashes Psych: Normal affect and mood ED course: 40-year-old female presents with left-sided flank pain 5 hours as upon arrival shows heart rate of 114, temperature 100.2 CT shows minimal left hydronephrosis and mild left hydroureter. Findings compatible for recent passage of kidney stone. Patient reevaluated at bedside. She reports dramatic improvement of her symptoms. Clinically slightly that patient passed kidney stone. Laboratory evaluation obtained. Leukocytosis of 20.8. Lactic acidosis. Rest of labs within acceptable limits. Pending urinalysis. Patient is sent out to Dr. Siegel. (Aaron Blood) - Related Data Home Medications Medication Instructions Recorded Confirmed Baclofen 10 mg PO QID PRN 02/14/17 07/23/20 Ibuprofen [Motrin] 800 mg PO Q8H PRN 07/23/20 07/23/20 Allergies Allergy/AdvReac Type Severity Reaction Status Date / Time No Known Allergies Allergy Verified 07/23/20 21:50 Review of Systems ROS Other: All systems not noted in ROS Statement are negative. <Aaron Blood - Last Filed: 07/23/20 22:56> ROS Other: All systems not noted in ROS Statement are negative. <Jitendra Cast - Last Filed: 07/24/20 00:33> ROS Statement: Those systems with pertinent positive or pertinent negative responses have been documented in the HPI. Past Medical History Past Medical History: No Reported History History of Any Multi-Drug Resistant Organisms: None Reported Past Surgical History: Tubal Ligation, Uterine Ablation Additional Past Surgical History / Comment(s): uterine ablation d and c Past Psychological History: No Psychological Hx Reported Smoking Status: Current some day smoker Past Alcohol Use History: Rare Past Drug Use History: Marijuana <Aaron Blood - Last Filed: 07/23/20 22:56> General Exam General appearance: alert, in no apparent distress Head exam: Present: atraumatic, normocephalic, normal inspection Eye exam: Present: normal appearance, PERRL, EOMI. Absent: scleral icterus, conjunctival injection, periorbital swelling ENT exam: Present: normal exam, mucous membranes moist Neck exam: Present: normal inspection. Absent: tenderness, meningismus, lymphadenopathy Respiratory exam: Present: normal lung sounds bilaterally. Absent: respiratory distress, wheezes, rales, rhonchi, stridor Cardiovascular Exam: Present: regular rate, normal rhythm, normal heart sounds. Absent: systolic murmur, diastolic murmur, rubs, gallop, clicks GI/Abdominal exam: Present: soft, normal bowel sounds. Absent: distended, tenderness, guarding, rebound, rigid Extremities exam: Present: normal inspection, full ROM, normal capillary refill. Absent: tenderness, pedal edema, joint swelling, calf tenderness Back exam: Present: normal inspection Neurological exam: Present: alert, oriented X3, CN II-XII intact Psychiatric exam: Present: normal affect, normal mood Skin exam: Present: warm, dry, intact, normal color. Absent: rash <Jitendra Cast - Last Filed: 07/24/20 00:33> Course <Jitendra Cast - Last Filed: 07/24/20 00:33> Vital Signs 07/23/20 07/23/20 07/23/20 20:33 22:12 22:55 Temperature 100.2 F H 98.3 F 98.2 F Pulse Rate 114 H 81 78 Respiratory 18 17 18 Rate Blood Pressure 135/94 122/67 104/65 O2 Sat by Pulse 99 96 96 Oximetry 07/23/20 23:46 Temperature 98.2 F Pulse Rate 84 Respiratory 18 Rate Blood Pressure 107/70 O2 Sat by Pulse 97 Oximetry - Reevaluation(s) Reevaluation #1: 07/24/20 00:31 Medical record is reviewed (Jitendra Cast) Reevaluation #2: 07/24/20 00:31 Patient feeling better some occasional pain but fevers controlled and pain is currently controlled tolerating oral intake (Jitendra Cast) Medical Decision Making - Lab Data Result diagrams: 07/23/20 20:57 07/23/20 20:57 <Aaron Blood - Last Filed: 07/23/20 22:56> - Lab Data Result diagrams: 07/23/20 20:57 07/23/20 20:57 - Radiology Data Radiology results: report reviewed (CT does show mild hydronephrosis), image reviewed <Jitendra Cast - Last Filed: 07/24/20 00:33> - Medical Decision Making 40 female DF for flank pain and fever white count does appear to have pyelonephritis will treat pyelonephritis with IV antibiotics here in the ER on back for an outpatient symptom management (Jitendra Cast) - Lab Data Lab Results 07/23/20 07/23/20 07/23/20 Range/Units 20:57 20:57 20:57 WBC 20.8 H (3.8-10.6) k/uL RBC 4.20 (3.80-5.40) m/uL Hgb 13.8 (11.4-16.0) gm/dL Hct 41.4 (34.0-46.0) % MCV 98.4 (80.0-100.0) fL MCH 32.9 (25.0-35.0) pg MCHC 33.5 (31.0-37.0) g/dL RDW 13.3 (11.5-15.5) % Plt Count 432 (150-450) k/uL Neutrophils % 87 % Lymphocytes % 7 % Monocytes % 5 % Eosinophils % 0 % Basophils % 0 % Neutrophils # 18.0 H (1.3-7.7) k/uL Lymphocytes # 1.6 (1.0-4.8) k/uL Monocytes # 0.9 (0-1.0) k/uL Eosinophils # 0.1 (0-0.7) k/uL Basophils # 0.0 (0-0.2) k/uL Sodium 135 L (137-145) mmol/L Potassium 3.4 L (3.5-5.1) mmol/L Chloride 104 (98-107) mmol/L Carbon Dioxide 23 (22-30) mmol/L Anion Gap 8 mmol/L BUN 5 L (7-17) mg/dL Creatinine 0.69 (0.52-1.04) mg/dL Est GFR (CKD-EPI)AfAm >90 (>60 ml/min/1.73 sqM) Est GFR (CKD-EPI)NonAf >90 (>60 ml/min/1.73 sqM) Glucose 108 H (74-99) mg/dL Plasma Lactic Acid Michael 0.9 (0.7-2.0) mmol/L Calcium 9.3 (8.4-10.2) mg/dL Urine Color Urine Appearance (Clear) Urine pH (5.0-8.0) Ur Specific [place] (1.001-1.035) Urine Protein (Negative) Urine Glucose (UA) (Negative) Urine Ketones (Negative) Urine Blood (Negative) Urine Nitrite (Negative) Urine Bilirubin (Negative) Urine Urobilinogen (<2.0) mg/dL Ur Leukocyte Esterase (Negative) Urine RBC (0-5) /hpf Urine WBC (0-5) /hpf Urine WBC Clumps (None) /hpf Ur Squamous Epith Cells (0-4) /hpf Urine Bacteria (None) /hpf Hyaline Casts (0-2) /lpf Urine Mucus (None) /hpf 07/23/20 Range/Units 22:42 WBC (3.8-10.6) k/uL RBC (3.80-5.40) m/uL Hgb (11.4-16.0) gm/dL Hct (34.0-46.0) % MCV (80.0-100.0) fL MCH (25.0-35.0) pg MCHC (31.0-37.0) g/dL RDW (11.5-15.5) % Plt Count (150-450) k/uL Neutrophils % % Lymphocytes % % Monocytes % % Eosinophils % % Basophils % % Neutrophils # (1.3-7.7) k/uL Lymphocytes # (1.0-4.8) k/uL Monocytes # (0-1.0) k/uL Eosinophils # (0-0.7) k/uL Basophils # (0-0.2) k/uL Sodium (137-145) mmol/L Potassium (3.5-5.1) mmol/L Chloride (98-107) mmol/L Carbon Dioxide (22-30) mmol/L Anion Gap mmol/L BUN (7-17) mg/dL Creatinine (0.52-1.04) mg/dL Est GFR (CKD-EPI)AfAm (>60 ml/min/1.73 sqM) Est GFR (CKD-EPI)NonAf (>60 ml/min/1.73 sqM) Glucose (74-99) mg/dL Plasma Lactic Acid Michael (0.7-2.0) mmol/L Calcium (8.4-10.2) mg/dL Urine Color Light Yellow Urine Appearance Cloudy H (Clear) Urine pH 6.0 (5.0-8.0) Ur Specific [place] 1.007 (1.001-1.035) Urine Protein 1+ H (Negative) Urine Glucose (UA) Negative (Negative) Urine Ketones Negative (Negative) Urine Blood Moderate H (Negative) Urine Nitrite Positive H (Negative) Urine Bilirubin Negative (Negative) Urine Urobilinogen <2.0 (<2.0) mg/dL Ur Leukocyte Esterase Large H (Negative) Urine RBC 5 (0-5) /hpf Urine WBC >182 H (0-5) /hpf Urine WBC Clumps Few H (None) /hpf Ur Squamous Epith Cells <1 (0-4) /hpf Urine Bacteria Rare H (None) /hpf Hyaline Casts 1 (0-2) /lpf Urine Mucus Rare H (None) /hpf Disposition <Aaron Blood - Last Filed: 07/23/20 22:56> Is patient prescribed a controlled substance at d/c from ED?: No <Jitendra Cast - Last Filed: 07/24/20 00:33> Clinical Impression: Fever, Left flank pain, Pyelonephritis of left kidney Disposition: HOME SELF-CARE Condition: Good Instructions (If sedation given, give patient instructions): Kidney Infection (ED), Urinary Tract Infection in Women (ED) Referrals: [place] MD [Primary Care Provider] - 1-2 days
[2020-07-23 21:13] LABS: Basophils % (A) 0 %; Eosinophils # (A) 0.1 k/uL (0-0.7); Eosinophils % (A) 0 %; HCT 41.4 % (34.0-46.0); HGB 13.8 gm/dL (11.4-16.0); Lymphocytes # (A) 1.6 k/uL (1.0-4.8); Lymphocytes % (A) 7 %; MCH 32.9 pg (25.0-35.0); MCHC 33.5 g/dL (31.0-37.0); MCV 98.4 fL (80.0-100.0); Mean Platelet Volume 6.9; Monocytes # (A) 0.9 k/uL (0-1.0); Monocytes % (A) 5 %; Neutrophils % (A) 87 %; Platelet Count 432 k/uL (150-450); RDW 13.3 % (11.5-15.5); WBC 20.8 k/uL (3.8-10.6)
[2020-07-23 21:28] LABS: African American GFR (CKD) >90 (>60 ml/min/1.73 sqM); Anion Gap 8 mmol/L; Blood Urea Nitrogen 5 mg/dL (7-17); Calcium 9.3 mg/dL (8.4-10.2); Carbon Dioxide 23 mmol/L (22-30); Chloride 104 mmol/L (98-107); Glucose 108 mg/dL (74-99); Non-African American GFR(CKD) >90 (>60 ml/min/1.73 sqM); Potassium 3.4 mmol/L (3.5-5.1); Sodium 135 mmol/L (137-145)
[2020-07-23] MEDS ORDERED: cefTRIAXone IN SWFI 1,000 MG/10 ML SYRINGE IVP STA (21:29)
--- NOTE | 2020-07-23 22:11 | CT ---
EXAMINATION TYPE: CT abdomen pelvis wo con DATE OF EXAM: 07/23/2020 COMPARISON: 05/14/2015 INDICATION: LT flank pain DLP: 626.9 mGycm, Automated exposure control for dose reduction was used. CONTRAST: 0 mL of Isovue 300. Study performed without Oral Contrast TECHNIQUE: Axial images were obtained from above the diaphragm to the pubic rami in the axial plane a t 5 mm thick sections. Reconstructed images are reviewed on the computer in the coronal plane. FINDINGS: Limited CT sections are obtained the lung bases. The lung bases are clear. CT ABDOMEN: Liver: Normal Spleen: Normal Pancreas: Normal Adrenal glands: The adrenal glands are normal. Gallbladder: Normal Kidneys: No masses are evident. No hydronephrosis is present. No cysts are present. There is a 0.2 cm nonobstructing renal stone at the inferior pole left kidney. There is a 0.2 cm nonobstructing kelsie al stone at the posterior right mid kidney. Mild left hydroureter may be present. An obstructing regina l stone is not identified. There appears to be a small phlebolith adjacent to the ureter near the lef t ureterovesical junction. Aorta: Vascular calcification is within the aorta. Inferior vena cava: Normal. CT PELVIS: Loops of bowel within the abdomen and pelvis are normal. Study is performed without oral contrast which limits bowel evaluation. Appendix: Normal as visualized. Urinary bladder: Normal. Genitourinary structures: Uterus is normal. Adnexal regions are within normal limits Osseous structures: No suspicious lytic or sclerotic lesions. IMPRESSIONS: 1. There may be some minimal left hydronephrosis and mild left hydroureter. Consider recent passage of a renal stone. Correlate with the patient's symptoms. A nonobstructing renal stone is not identifi ed at this time. There is a phlebolith adjacent to the left distal ureter.
[2020-07-23] MEDS ORDERED: POTASSIUM BICARBONATE/CIT AC 20 MEQ TABLET.EFF PO ONE (23:00)
[2020-07-23 23:13] LABS: Appearance,Urine Cloudy (Clear); Bacteria,Urine Rare /hpf; Bilirubin,Urine Negative (Negative); Blood,Urine Moderate (Negative); Color,Urine Light Yellow; Glucose,Urine (UA) Negative (Negative); Hyaline Casts,Urine 1 /lpf (0-2); Ketones,Urine Negative (Negative); Leukocyte Esterase,Urine Large (Negative); Mucus,Urine Rare /hpf; Nitrite,Urine Positive (Negative); Protein,Urine 1+ (Negative); RBC,Urine 5 /hpf (0-5); Specific Gravity,Urine 1.007 (1.001-1.035); Squamous Epithelial Cell,Urine <1 /hpf (0-4); Urobilinogen,Urine <2.0 mg/dL (<2.0); WBC,Urine >182 /hpf (0-5)
[2020-07-24] MEDS ORDERED: ACET/COD 300 MG/30 MG STARTER PACK 6 TAB BTL PO STA (00:31)
[2020-07-24] MEDS ORDERED: Acetaminophen-Codeine 300-30mg TAB PO STA (00:31)
[2020-07-24] MEDS ORDERED: KETOROLAC 15 MG/ML 1 ML VIAL IVP STA (00:31)
[2020-07-24 00:59] VITALS: BP 123/79; PULSE 82; RESP 19; TEMP 98
== END 2020-07-24 01:09 | disposition home or self-care (01) ==
LOC: EC 20:27
DX: N12 Tubulo-interstitial nephritis, not specified as acute or chronic (principal); F17.200 Nicotine dependence, unspecified, uncomplicated
CPT/HCPCS: 36415; 80048; 83605; 85025; 81001; 87040; 87086; 74176; 99284; 96374; 96375 ×2; 96376; 96361; J2270; J0696